=== PATIENT | male | born 1950 ===

== ENCOUNTER 2017-06-17 07:03 | Inpatient (IN) | payer BC ==
[2017-05-27 11:12] VITALS: BMI 29.8
[2017-06-17] MEDS ORDERED: Propofol 10 mg/ml Inj (20 ML) ONE ×2 (07:20→11:13)
[2017-06-17] MEDS ORDERED: Midazolam 2 MG/2 ML VIAL ONE (07:20)
[2017-06-17] MEDS ORDERED: Bupivacaine 0.5% Inj(30mL) ONE ×2 (07:20→10:49)
[2017-06-17] MEDS ORDERED: Rocuronium 10 mg/ml (5 ml) ONE (07:26)
[2017-06-17] MEDS ORDERED: Succinylcholine 200 mg/10 ml Inj IV ONE (07:26)
--- NOTE | 2017-06-17 07:29 | CP.PCM.HP ---
History of Present Illness - History of Present Illness History of Present Illness: 66M LHD failed conservative mgmt and elected for total shoulder replacement. Present on Admission - Present on Admission Any Indicators Present on Admission: No Past Patient History - Past Medical History & Family History Past Medical History?: Yes - Past Social History Smoking Status: Former Smoker - CARDIAC Hx Cardiac Disorders: No Hx Pacemaker: No - PULMONARY Hx Respiratory Disorders: No - NEUROLOGICAL Hx Paralysis: No - ENDOCRINE/METABOLIC Hx Endocrine Disorders: Yes Hx Diabetes Mellitus Type 2: Yes - HEMATOLOGICAL/ONCOLOGICAL Hx Blood Disorders: No Hx Blood Transfusions: No Hx Blood Transfusion Reaction: No - MUSCULOSKELETAL/RHEUMATOLOGICAL Hx Falls: No - GASTROINTESTINAL Hx Gastrointestinal Disorders: Yes (GERD) Hx Diverticulitis: Yes (HOSPITALIZED X 2) - GENITOURINARY/GYNECOLOGICAL Hx Genitourinary Disorders: Yes (BPH) Hx Reproductive Disorders: No - PSYCHIATRIC Hx Substance Use: No - SURGICAL HISTORY Hx Surgeries: Yes Hx Joint Replacement: Yes (Left hip) Hx Orthopedic Surgery: Yes (B shoulder arthroscopy) - ANESTHESIA Hx Anesthesia Reactions: No Hx Malignant Hyperthermia: No Meds Allergies/Adverse Reactions: Allergies Allergy/AdvReac Type Severity Reaction Status Date / Time SURGICAL TAPE Allergy Severe RASH Uncoded 05/27/17 11:12 Physical Exam - Constitutional Appears: Well, No Acute Distress - Respiratory Exam Respiratory Exam: NORMAL BREATHING PATTERN - Expanded Upper Extremities Exam Right Neuro motor exam: finger 2-5 abduction intact, thumb abduction, thumb IP flexion intact, thumb opposition intact, wrist extension intact Neurosensory exam: median nerve intact, radial nerve intact, ulnar nerve intact Vascular exam: radial pulse - Neurological Exam Neurological exam: Alert, Oriented x3 - Psychiatric Exam Psychiatric exam: Normal Affect, Normal Mood - Skin Skin Exam: Warm Assessment & Plan (1) Degenerative arthritis of right shoulder region Assessment and Plan: for total shoulder replacement t&s NPO for OR Status: Acute
[2017-06-17] MEDS ORDERED: Desflurane Inhalation Anesthetic Liq (240 ml) ONE (08:40)
[2017-06-17] MEDS ORDERED: HYDROmorphone 0.5 mg/0.5 ml ISec IVP PRN ×3 (09:48→12:01)
[2017-06-17] MEDS ORDERED: Lactated Ringer's 1,000 ML IV SCH ×2 (10:00→12:00)
[2017-06-17] MEDS ORDERED: Neostigmine Methylsulfate 3mg/3ml Syringe IV ONE (10:49)
[2017-06-17] MEDS ORDERED: HYDROmorphone 0.5 mg/0.5 ml ISec IVP ONE ×4 (12:05→12:45)
[2017-06-17] MEDS ORDERED: Sodium Chloride 0.9% 1,000 ML IV SCH (12:15)
[2017-06-17] MEDS ORDERED: HYDROmorphone 0.5 mg/0.5 ml ISec ONE ×4 (12:18→12:44)
--- NOTE | 2017-06-17 12:39 | PCM.SURG1 ---
Surgeon's Initial Post Op Note - Surgeon's Notes Surgeon: Amber Iglesias MD Cut Off Man: Vesta Schwartz PA-C Type of Anesthesia: General Endo Anesthesia Administered By: Dr. Gleason Pre-Operative Diagnosis: Right shoulder DJD Operative Findings: see full note Post-Operative Diagnosis: same Operation Performed: Right total shoulder replacement (reverse) Specimen/Specimens Removed: humeral head Estimated Blood Loss: EBL {In ML}: 75 Blood Products Given: N/A Drains Used: No Drains Post-Op Condition: Fair Date of Surgery/Procedure: 06/17/17 Time of Surgery/Procedure: 12:39
--- NOTE | 2017-06-17 12:39 | RAD ---
PROCEDURE: Radiographs of the Right Shoulder HISTORY: s/p total shoulder, pt in PACU COMPARISON: No prior. FINDINGS: BONES: Limited examination. Status post right glenohumeral arthroplasty. No dislocation. No osseous fracture. No additional abnormality. JOINTS: As above SOFT TISSUES: Normal. OTHER FINDINGS: None. IMPRESSION: Right glenohumeral arthroplasty.
[2017-06-17] MEDS: ceFAZolin 2 GM in Sodium Chloride 0.9% 100 ML IVPB SCH (16:02)
[2017-06-17] MEDS ORDERED: Insulin Reg-MEDIUM-Coverage SC SCH (22:00)
[2017-06-17] MEDS: HYDROmorphone 0.5 mg/0.5 ml ISec IVP PRN (22:00)
--- NOTE | 2017-06-17 22:07 | CON ---
HISTORY OF PRESENT ILLNESS: I was called by orthopedist to take a look at, he is in his room 566, bed 1, at [facility]. He is resting comfortably in bed. He has failed outpatient therapy. He is elective for total shoulder replacement on his right shoulder with Dr. Iglesias. He is in a sling and a brace. He is medicated. He has a past medical history of diabetes, gastroesophageal reflux disease, BPH, he has had diverticulitis before, he has been hospitalized, he has had left hip replacement, both shoulders arthroscopy, and now he has a right shoulder replacement. ALLERGIES: HE HAS ALLERGIES TO SURGICAL TAPE. SOCIAL HISTORY: He is a former smoker, occasional alcohol, no drugs. MEDICATIONS: He is on Lipitor for high cholesterol, Pepcid for his GERD, Reglan, he has testosterone replacement for low testosterone. REVIEW OF SYSTEMS: No acute vision or hearing changes. No sore throat. No chest pain. No shortness of breath. No abdominal pain, nausea, vomiting at this time. No leg issues. His right shoulder is in pain secondary to total right shoulder replacement. PHYSICAL EXAMINATION VITAL SIGNS: 98.2 temp, 99 pulse, 116/67 blood pressure, 18 respiratory rate, 97% O2 sat on room air. HEENT: His head is atraumatic and normocephalic. Extraocular muscles are intact. Throat is dry. NECK: Supple. HEART: Regular rate. LUNGS: Decreased breath sounds but clear bilaterally. Poor inspiration. He is medicated status post surgery. ABDOMEN: Soft and nontender. Positive bowel sounds. EXTREMITIES: Lower extremities have no edema. Right arm is bandaged up. Thyroid midline. No palpable appreciable lymphadenopathy. LABORATORY DATA: He had a blood sugar of 143, blood sugars. MEDICATIONS: He is on Ambien, cefazolin, Dilaudid, Drisdol, Ecotrin, fentanyl, Levsin, Lipitor, Tylenol, Pepcid, Percocet, Reglan, , testosterone, Zofran. I will put him on insulin coverage. I do not see any meds for diabetes. We will see how he is tomorrow. We will check his labs tomorrow morning. He will be medicated tonight, will give a sleeping pill tonight, some Ambien and is here for status post right shoulder replacement with history of diabetes, GERD. Norberto Tom DO [facility]
[2017-06-17] MEDS ORDERED: Pneumococcal 23-Valent Vaccine IM ONE (22:38)
[2017-06-17] MEDS ORDERED: Influenza Vaccine 60 mcg/0.5 mL SYR (4YR UP) IM ONE (22:38)
--- NOTE | 2017-06-17 23:23 | OP ---
PROCEDURE DATE: 06/17/2017 PREOPERATIVE DIAGNOSIS: Right shoulder rotator cuff arthropathy. POSTOPERATIVE DIAGNOSIS: Right shoulder rotator cuff arthropathy. PROCEDURE: Right reverse total shoulder arthroplasty. SURGEON: Gary Iglesias MD MACHINE STACKER: Dr. Iglesias was assisted by Mahnaz Schwartz, the physician planning assistant. Ms. Schwartz was scrubbed and present throughout the entire case and assisted in patient positioning, retraction, manipulation of arm during surgery as well as wound closure. TYPE OF ANESTHESIA: General. COMPLICATIONS: None. ESTIMATED BLOOD LOSS: 75 mL. IMPLANT: Biomet reverse total shoulder. INDICATION FOR THE PROCEDURE: This is a 66-year-old gentleman who presented with longstanding right shoulder pain. The patient previously had a failed right shoulder rotator cuff repair and postoperatively developed progressive pain and loss of function. Radiographically, the patient was noted to have a significant degenerative glenohumeral arthritis. After a period of failed nonsurgical management, recommendation was for a right reverse total shoulder arthroplasty. The risks, benefits, and alternatives of the procedure were discussed with the patient and informed consent was obtained. DESCRIPTION OF PROCEDURE: After the surgical site was signed and verified in the preoperative holding area, the patient was taken to the operating room and placed supine on the operating room table. After administration of general anesthesia, the patient was positioned in the beach chair position. Care was taken to make sure all bony prominences and nerves were well padded and protected. Venodyne boot was placed on the nonoperative extremity and the right upper extremity was prepped and draped in the usual sterile fashion. The bony landmarks were identified about the right shoulder and approximately 9 cm oblique incision was made in the deltopectoral groove. Deltopectoral was taken, cephalic vein was identified, and gently retracted laterally. The interval between the deltoid and pectoralis was developed down to the fascia. The fascia was incised. Conjoint tendon was gently retracted medially and sheath of the biceps was opened. The long head of the biceps was not visible as he had previous chronic ruptured biceps. At this point, the mortise of the subscapularis tendon were identified and the subscapularis was resected off of the lesser tuberosity. The tendon was tagged using 5 Vicryl suture, and at this point, a capsulectomy was performed gently releasing the capsules off of circumferentially around the humeral head. The axillary nerve was palpated and protected during this part of the procedure. Next, humeral head was dislocated and starting reamer was used to drill to the medullary canal of the proximal humerus. The medullary canal was then reamed sequentially to allow for a 12-mm Press-Fit stem. At this point, the outrigger jig was placed over the reamer and being careful to maintain the proper retroversion, the cutting guide was pinned into the place and humeral head resection was performed. The jig was removed and any remaining osteophytes were removed off of the neck of the humerus. At this point, the medullary canal of the proximal humerus was broached, again making sure to maintain the proper version and once this was done, our attention was directed to the glenoid. The soft tissue around the glenoid was removed including the labrum and any remaining cartilage. The guide for central hole, guide pin was placed on the glenoid and the guide pin was then drilled. Satisfied with position, center hole was then drilled. At this point, the actual base plate was then impacted into place. The guide pin was removed. The length of our central hole screw was then measured and the appropriate length screw was then inserted providing excellent fixation. Once this was done, one additional screw was placed each in the four quadrants as supplemental fixation. At this point, the wound was copiously irrigated and the glenosphere was then impacted into place. Our attention was directed back to the humerus, and with a trial stem and a trial bearing in place, the shoulder was reduced and taken through range of motion. The patient was easily noted to have 35-40 degrees of external rotation, could easily internally rotate to the abdomen and had 100 degrees of forward flexion. With extension and external rotation, the shoulder was also noted to be stable. At this point, the shoulder was dislocated and trial components were removed. The shoulder drill was once again pulse lavaged and then the actual stem was then impacted into place. The bearing was then inserted and it was impacted over the stem and shoulder reduced. At this point, the subscapularis was repaired through holes through the lesser tuberosity using #5 FiberWire suture. Care was to ensure to not over tightened the subscapularis. The deltopectoral interval was loosely approximated with 0-Vicryl suture. The subcutaneous tissue was closed using 0 Vicryl and 2-0 Vicryl suture and the skin was closed using 3-0 nylon. A sterile dressing was applied and a sling was placed. The patient was awakened from the procedure and taken to the recovery room in stable condition. Gary Iglesias MD
[2017-06-18] MEDS: ceFAZolin 2 GM in Sodium Chloride 0.9% 100 ML IVPB SCH (00:50)
[2017-06-18] MEDS: Oxycodone/Acetaminophen 5/325 mg Tab PO PRN ×2 (02:08→06:06)
[2017-06-18 07:34] LABS: BASO # 0.01 K/mm3 (0.0-2.0); BASO % 0.2 % (0.0-3.0); EOS % 0.2 % (1.5-5.0); GRAN # 4.8 (1.4-6.5); HEMATOCRIT 32.5 % (42.0-52.0); LYMPH # 0.6 (1.2-3.4); LYMPH % 9.6 % (22.0-35.0); MEAN CELL VOLUME 87.4 fl (80.0-105.0); MEAN CORPUSCULAR HGB CONC 33.2 g/dl (31.0-37.0); MEAN PLATELET VOLUME 9.8 fl (7.0-11.0); MONO # 0.7 (0.1-0.6); RED CELL DISTRIBUTION WIDTH 13.6 % (11.5-14.5); WHITE BLOOD COUNT 6.1 10^3/ul (4.5-11.0)
[2017-06-18 07:46] LABS: BLOOD UREA NITROGEN 7 mg/dL (7-21); CALCIUM 8.5 mg/dL (8.4-10.5); CARBON DIOXIDE 25 mmol/L (21-33); CHLORIDE 103 mmol/L (98-107); GFR AFRICAN-AMERICAN > 60; GLUCOSE,RANDOM 121 mg/dL (70-110); POTASSIUM 3.6 mmol/L (3.6-5.0); SODIUM 136 mmol/L (132-148)
[2017-06-18] MEDS ORDERED: Sodium Chloride 0.9% 1,000 ML IV SCH (08:09)
[2017-06-18 08:34] VITALS: BP 109/70; PULSE 94; RESP 20; TEMP 98.7; O2SAT 95
--- NOTE | 2017-06-18 09:26 | PN ---
DATE: SUBJECTIVE: I saw him resting comfortably in bed. He slept fairly well last night. He was able to go to the bathroom. He is having right shoulder pain from right shoulder replacement by Dr. Iglesias. MEDICATIONS: He is currently on Ambien, Dilaudid, Drisdol, Ecotrin, fentanyl, insulin coverage, Levsin, Lipitor, Tylenol, Pepcid, Percocet, Reglan, IV fluids, testosterone, and Zofran. PHYSICAL EXAMINATION: VITAL SIGNS: He has 98.2 temp, 99 pulse, 116/67 blood pressure, 18 respiratory rate, 97% O2 sat on room air. HEENT: Head is atraumatic and normocephalic. HEART: Regular rate. LUNGS: Decreased breath sounds, but clear. ABDOMEN: Soft. EXTREMITIES: No edema. Right arm is in a sling and all bandaged. LABORATORY DATA: He has a 6.1 white count, 10.8 hemoglobin, 32.5 hematocrit with 145 platelets. He has a 136 sodium, potassium 3.6, BUN 7, creatinine 0.6. GFR is greater than 60, sugar is 121, calcium is 8.5. PLAN: I am going to decrease the IV fluids to 40 mL an hour as per Surgery, Orthopedics, they want to discharge him or not. Medically, seems to be fairly stable, but we will change the IV down to 40. Continue with aggressive treatment and care on Gerry Singh, who had a right shoulder replacement. Norberto Tom DO
[2017-06-18] MEDS ORDERED: Hyoscyamine 0.125 mg SL Tab PO SCH (10:00)
[2017-06-18] MEDS ORDERED: TESTOSTERONE TP SCH (10:00)
[2017-06-18] MEDS ORDERED: Aspirin 325 mg EC Tablets PO SCH (10:00)
[2017-06-18] MEDS: HYDROmorphone 0.5 mg/0.5 ml ISec IVP PRN (10:39)
--- NOTE | 2017-06-18 10:59 | CP.PCM.PN ---
Subjective - Date & Time of Evaluation Date of Evaluation: 06/18/17 Time of Evaluation: 10:58 - Subjective Subjective: Pt awake,alert. Afebrile RUE: dressing and sling intact NVI distally Hg 10.8 POD#1 Stable for d/c home today f/u in office next week Objective - Vital Signs/Intake and Output Vital Signs (last 24 hours): Temp Pulse Resp BP Pulse Ox 98.7 F 94 H 20 109/70 95 06/18/17 07:30 06/18/17 07:30 06/18/17 07:30 06/18/17 07:30 06/18/17 07:30 Intake and Output: 06/18/17 06/18/17 06:59 18:59 Intake Total 240 Output Total 300 Balance -60 - Medications Medications: Current Medications Aspirin (Ecotrin) 325 mg PO BID [facility] Last Admin: 06/18/17 10:41 Dose: 325 mg Atorvastatin Calcium (Lipitor) 10 mg PO DAILY [facility] Last Admin: 06/18/17 10:41 Dose: 10 mg Ergocalciferol (Drisdol 50,000 Intl Units Cap) 1 cap PO SAT [facility] Famotidine (Pepcid) 20 mg PO DAILY [facility] Last Admin: 06/18/17 10:41 Dose: 20 mg Fentanyl (Fentanyl) 25 mcg IV Q5M PRN PRN Reason: Pain, moderate (4-7) Hydromorphone HCl (Dilaudid) 0.5 mg IVP Q4H PRN PRN Reason: Pain, moderate (4-7) Last Admin: 06/18/17 10:39 Dose: 0.5 mg Hyoscyamine (Levsin) 0.125 mg PO DAILY [facility] Acetaminophen (Ofirmev) 1,000 mg in 100 mls @ 1,000 mls/hr IVPB ONCE PRN PRN Reason: Pain, moderate (4-7) Stop: 06/19/17 14:56 Sodium Chloride (Sodium Chloride 0.9%) 1,000 mls @ 40 mls/hr IV .Q24H [facility] Last Admin: 06/18/17 10:46 Dose: 40 mls/hr Insulin Human Regular (Humulin R Med) 0 units SC ACHS [facility] PRN Reason: Protocol Last Admin: 06/18/17 08:54 Dose: Not Given Metoclopramide HCl (Reglan) 10 mg IV ONCE PRN PRN Reason: Nausea/Vomiting Non-Formulary Medication (Testosterone [Androgel]) 1.62 dose TP DAILY [facility] Last Admin: 06/18/17 10:41 Dose: Not Given Ondansetron HCl (Zofran Inj) 4 mg IVP ONCE PRN PRN Reason: Nausea/Vomiting Ondansetron HCl (Zofran Inj) 4 mg IVP Q4H PRN PRN Reason: Nausea/Vomiting Last Admin: 06/17/17 15:15 Dose: 4 mg Oxycodone/Acetaminophen (Percocet 5/325 Mg Tab) 1 tab PO Q4H PRN PRN Reason: Pain, Mild (1-3) Stop: 06/20/17 12:11 Last Admin: 06/18/17 06:06 Dose: 1 tab Zolpidem Tartrate (Ambien) 5 mg PO HS PRN; Protocol PRN Reason: Insomnia Last Admin: 06/18/17 00:50 Dose: 5 mg - Labs Labs: 06/18/17 06:45 06/18/17 06:45
[2017-06-21] MEDS ORDERED: Ergocalciferol 50,000 Intl Units Cap PO SCH (10:00)
== END 2017-06-18 14:59 | disposition home or self-care (01) | DRG 483 ==
LOC: SDAINP 07:03 → EDSTATUS 07:30 → 5RNO 14:06
PROVIDERS: ADMIT Orthopaedic Surgery; ATTEND Orthopaedic Surgery
PROC: 0RRJ00Z Replacement of Right Shoulder Joint with Reverse Ball and Socket Synthetic Substitute, Open Approach (ICD-10-PCS; principal; 2017-06-17 07:30)
DX: M19.011 Primary osteoarthritis, right shoulder (principal); E11.9 Type 2 diabetes mellitus without complications; K21.9 Gastro-esophageal reflux disease without esophagitis; N40.0 Benign prostatic hyperplasia without lower urinary tract symptoms; Z96.642 Presence of left artificial hip joint; Z87.891 Personal history of nicotine dependence